=== PATIENT | female | born 2000 | race Caucasian/White ===

== ENCOUNTER 2020-05-15 15:15 | Emergency (ER) | payer MEDICAID, OTHER ==
[2020-05-15] MEDS: Metoclopramide 10 MG/2 ML SDV IVPUSH ONE ×2 (16:40→18:16)
[2020-05-15] MEDS: hydrOXYzine HCl 50 MG/ML SDV IM ONE ×2 (16:40→18:16)
[2020-05-15] MEDS ORDERED: HYDROmorphone 2 MG/ML SDV IM ONE (18:10)
[2020-05-15] MEDS ORDERED: diphenhydrAMINE 50 MG/ML SDV IM ONE (18:10)
[2020-05-15] MEDS ORDERED: Metoclopramide 10 MG/2 ML SDV IM ONE (18:10)
--- NOTE | 2020-05-15 18:15 | EDM.PDOC ---
ED HPI GENERAL MEDICAL PROBLEM - General Chief Complaint: Abdominal Pain Stated Complaint: COVID?? Time Seen by Provider: 05/15/20 17:45 Source of Information: Reports: Patient History Limitations: Reports: No Limitations - History of Present Illness INITIAL COMMENTS - FREE TEXT/NARRATIVE: c/o RLQ pain pt with h/o Crohn's of terminal ileum, dx 09/29, has had colonoscopy x 3 with GI in [place] was in hosp from Sep to Feb for recurrent pain says she always gets Benadryl and Reglan and Dilaudid for her pain refused hydroxyzine, says it interacts with her Seroquel and makes her shaking refused Reglan IM initially altho later agreed to take it says she uses Dilaudid at home and Reglan, Rx'ed by her PCP in [place], however MPMP is neg for [place] in past year says [facility] and had onset of pain 2h [employer] had had both bleeding and mucus in past, none now says this is the smae pain she has had in past and that it is a flare of her Crohn's says her labs are "always fine" says she is ANtiveo last on steroids 1m ago which she says she cannot take because it causes her to gain wt and feel shaky insisted on getting Beadryl and Dilaudid and Reglan, says her boyfriend was here to give her a ride home has had 5 loose BM/d for since dx Crohn's 09/29, including in last 24h, says she felt fine until 2h [employer] - Related Data Allergies Allergy/AdvReac Type Severity Reaction Status Date / Time cyclobenzaprine Allergy Hives Verified 05/15/20 16:26 [From Flexeril] levofloxacin [From Levaquin] Allergy Hives Verified 05/15/20 16:26 Penicillins Allergy Hives Verified 05/15/20 16:26 sulfamethoxazole Allergy Hives Verified 05/15/20 16:26 [From Bactrim] trimethoprim [From Bactrim] Allergy Hives Verified 05/15/20 16:26 Flu vaccine Allergy Hives Uncoded 05/15/20 16:26 Home Meds: Home Meds QUEtiapine Fumarate [Seroquel] 400 mg PO BEDTIME 05/15/20 [History] ED ROS GENERAL - Review of Systems Review Of Systems: See Below Constitutional: Reports: No Symptoms HEENT: Reports: No Symptoms Respiratory: Reports: No Symptoms Cardiovascular: Reports: No Symptoms Endocrine: Reports: No Symptoms GI/Abdominal: Reports: Abdominal Pain, Nausea. Denies: Vomiting : Reports: No Symptoms Musculoskeletal: Reports: No Symptoms Skin: Reports: No Symptoms Neurological: Reports: No Symptoms Psychiatric: Reports: No Symptoms Hematologic/Lymphatic: Reports: No Symptoms Immunologic: Reports: No Symptoms ED EXAM, GI/ABD - Physical Exam Exam: See Below Exam Limited By: No Limitations General Appearance: Alert, WD/WN, No Apparent Distress Throat/Mouth: Normal Inspection Head: Atraumatic, Normocephalic Neck: Normal Inspection, Supple, Non-Tender, Full Range of Motion. No: Lymphadenopathy (R), Lymphadenopathy (L) Respiratory/Chest: No Respiratory Distress, Lungs Clear, Normal Breath Sounds, No Accessory Muscle Use, Chest Non-Tender Cardiovascular: Regular Rate, Rhythm, No Edema, No Gallop, No JVD, No Murmur, No Rub GI/Abdominal Exam: Normal Bowel Sounds, Soft, Non-Tender, No Distention Back Exam: Normal Inspection, Full Range of Motion. No: CVA Tenderness (R), CVA Tenderness (L) Extremities: Normal Inspection, Normal Range of Motion, Non-Tender, No Pedal Edema Neurological: Alert, Oriented, CN II-XII Intact, Normal Cognition, Normal Reflexes, No Motor/Sensory Deficits Psychiatric: Normal Affect, Normal Mood Skin Exam: Warm, Dry, Intact, Normal Color, No Rash Lymphatic: No Adenopathy Course - Vital Signs Last Recorded V/S: Last Vital Signs Temp 36.7 C 05/15/20 15:20 Pulse 115 H 05/15/20 15:20 Resp 17 05/15/20 15:20 BP 147/100 H 05/15/20 15:20 Pulse Ox 100 05/15/20 15:20 - Orders/Labs/Meds Labs: Laboratory Tests 05/15/20 05/15/20 05/15/20 Range/Units 15:54 15:54 15:54 WBC (4.5-12.0) X10-3/uL RBC (3.23-5.20) x10(6)uL Hgb (11.5-15.5) g/dL Hct (30.0-51.3) % MCV (80-96) fL MCH (27.7-33.6) pg MCHC (32.2-35.4) g/dL RDW (11.5-15.5) % Plt Count (125-369) X10(3)uL MPV (7.4-10.4) fL Neut % (Auto) (46-82) % Lymph % (Auto) (13-37) % [place] % (Auto) (4-12) % Eos % (Auto) (1.0-5.0) % Baso % (Auto) (0-2) % Neut # (Auto) (1.6-8.3) # Lymph # (Auto) (0.6-5.0) # [place] # (Auto) (0.0-1.3) # Eos # (Auto) (0.0-0.8) # Baso # (Auto) (0.0-0.2) # Sodium (135-145) mmol/L Potassium (3.5-5.3) mmol/L Chloride (100-110) mmol/L Carbon Dioxide (21-32) mmol/L BUN (7-18) mg/dL Creatinine (0.55-1.02) mg/dL Est Cr Clr Drug Dosing Estimated GFR (MDRD) (>60) BUN/Creatinine Ratio (9-20) Glucose (80-116) mg/dL Calcium (8.6-10.2) mg/dL Total Bilirubin (0.1-1.3) mg/dL AST (5-25) IU/L ALT (12-36) U/L Alkaline Phosphatase (56-112) IU/L C-Reactive Protein (0.5-0.9) mg/dL Total Protein (6.0-8.0) g/dL Albumin (3.5-5.2) g/dL Globulin g/dL Albumin/Globulin Ratio Lipase (73-393) U/L Urine Color Yellow (YELLOW) Urine Appearance Clear (CLEAR) Urine pH 6.0 (5.0-6.5) Ur Specific [place] 1.015 (1.010-1.025) Urine Protein Negative (NEGATIVE) mg/dL Urine Glucose (UA) Normal (NORMAL) mg/dL Urine Ketones Negative (NEGATIVE) mg/dL Urine Occult Blood Negative (NEGATIVE) Urine Nitrite Negative (NEGATIVE) Urine Bilirubin Negative (NEGATIVE) Urine Urobilinogen Normal (NEGATIVE) mg/dL Ur Leukocyte Esterase Negative (NEGATIVE) Urine RBC Not seen (0-5) Urine WBC 0-5 (0-5) Ur Squamous Epith Cells Few H (NS,R,O) Urine Bacteria Few H (NS) Urine HCG, Qual Negative (NEGATIVE) Urine Opiates Screen Negative (NEGATIVE) Ur Oxycodone Screen Negative (NEGATIVE) Ur Propoxyphene Screen Negative (NEGATIVE) Ur Barbituates Screen Negative (NEGATIVE) Ur Tricyclics Screen Negative (NEGATIVE) Ur Phencyclidine Scrn Negative (NEGATIVE) Ur Amphetamine Screen Negative (NEGATIVE) Urine MDMA Screen Negative (NEGATIVE) U Benzodiazepines Scrn Negative (NEGATIVE) U Cocaine Metab Screen Negative (NEGATIVE) U Marijuana (THC) Screen Negative (NEGATIVE) 05/15/20 05/15/20 05/15/20 Range/Units 16:15 16:15 16:15 WBC 10.3 (4.5-12.0) X10-3/uL RBC 4.47 (3.23-5.20) x10(6)uL Hgb 10.5 L (11.5-15.5) g/dL Hct 31.9 (30.0-51.3) % MCV 71.4 L (80-96) fL MCH 23.6 L (27.7-33.6) pg MCHC 33.1 (32.2-35.4) g/dL RDW 17.1 H (11.5-15.5) % Plt Count 482 H (125-369) X10(3)uL MPV 8.4 (7.4-10.4) fL Neut % (Auto) 67.5 (46-82) % Lymph % (Auto) 24.5 (13-37) % [place] % (Auto) 6.9 (4-12) % Eos % (Auto) 1 (1.0-5.0) % Baso % (Auto) 0 (0-2) % Neut # (Auto) 7.0 (1.6-8.3) # Lymph # (Auto) 2.5 (0.6-5.0) # [place] # (Auto) 0.7 (0.0-1.3) # Eos # (Auto) 0.1 (0.0-0.8) # Baso # (Auto) 0.0 (0.0-0.2) # Sodium 140 (135-145) mmol/L Potassium 3.8 (3.5-5.3) mmol/L Chloride 106 (100-110) mmol/L Carbon Dioxide 23 (21-32) mmol/L BUN 12 (7-18) mg/dL Creatinine 1.1 H (0.55-1.02) mg/dL Est Cr Clr Drug Dosing TNP Estimated GFR (MDRD) > 60 (>60) BUN/Creatinine Ratio 10.9 (9-20) Glucose 92 (80-116) mg/dL Calcium 8.8 (8.6-10.2) mg/dL Total Bilirubin 0.4 (0.1-1.3) mg/dL AST 14 (5-25) IU/L ALT 21 (12-36) U/L Alkaline Phosphatase 89 (56-112) IU/L C-Reactive Protein 0.7 (0.5-0.9) mg/dL Total Protein 7.4 (6.0-8.0) g/dL Albumin 3.7 (3.5-5.2) g/dL Globulin 3.7 g/dL Albumin/Globulin Ratio 1.0 Lipase 131 (73-393) U/L Urine Color (YELLOW) Urine Appearance (CLEAR) Urine pH (5.0-6.5) Ur Specific [place] (1.010-1.025) Urine Protein (NEGATIVE) mg/dL Urine Glucose (UA) (NORMAL) mg/dL Urine Ketones (NEGATIVE) mg/dL Urine Occult Blood (NEGATIVE) Urine Nitrite (NEGATIVE) Urine Bilirubin (NEGATIVE) Urine Urobilinogen (NEGATIVE) mg/dL Ur Leukocyte Esterase (NEGATIVE) Urine RBC (0-5) Urine WBC (0-5) Ur Squamous Epith Cells (NS,R,O) Urine Bacteria (NS) Urine HCG, Qual (NEGATIVE) Urine Opiates Screen (NEGATIVE) Ur Oxycodone Screen (NEGATIVE) Ur Propoxyphene Screen (NEGATIVE) Ur Barbituates Screen (NEGATIVE) Ur Tricyclics Screen (NEGATIVE) Ur Phencyclidine Scrn (NEGATIVE) Ur Amphetamine Screen (NEGATIVE) Urine MDMA Screen (NEGATIVE) U Benzodiazepines Scrn (NEGATIVE) U Cocaine Metab Screen (NEGATIVE) U Marijuana (THC) Screen (NEGATIVE) Meds: Medications Discontinued Medications Generic Name Dose Route Start Last Admin Trade Name Riky PRN Reason Stop Dose Admin Diphenhydramine HCl 50 mg 05/15/20 18:10 05/15/20 18:22 Benadryl IM 05/15/20 18:11 50 mg ONETIME ONE Administration Hydromorphone HCl 1 mg 05/15/20 18:10 05/15/20 18:21 Dilaudid IM 05/15/20 18:11 1 mg ONETIME ONE Administration Hydroxyzine HCl 50 mg 05/15/20 15:53 05/15/20 18:16 Vistaril IM 05/15/20 15:54 Not Given ONETIME ONE Metoclopramide HCl 10 mg 05/15/20 16:31 05/15/20 18:16 Reglan IVPUSH 05/15/20 16:32 Not Given ONETIME ONE Metoclopramide HCl 10 mg 05/15/20 18:10 05/15/20 18:20 Reglan IM 05/15/20 18:11 10 mg ONETIME ONE Administration - Re-Assessments/Exams Free Text/Narrative Re-Assessment/Exam: 05/15/20 20:08 pt has a flare of her Crohn's by hx and PE altho old records not available pt has h/o of bipolar, unclear if all of her hx is accurate, pt does not have oral Dilaudid at home despite standing that she does pt did ask for a "small, one-day" supply of controlled meds, told that she would need to get these from her PCP malingering and drug seeking behavior are part of differential in the absence of confirmatory data Departure - Departure Time of Disposition: 18:11 Disposition: Home, Self-Care 01 Condition: Good Clinical Impression: Crohns disease of small intestine, Exacerbation of Crohn's disease, Right lower quadrant pain - Discharge Information *PRESCRIPTION DRUG MONITORING PROGRAM REVIEWED*: Yes *COPY OF PRESCRIPTION DRUG MONITORING REPORT IN PATIENT LUCI: No Instructions: Crohn's Disease Referrals: PCP,None [Primary Care Provider] - Forms: ED Department Discharge Additional Instructions: Continue your regular meds. Contact your primary care physician regarding additional meds at home. See your GI doctor later this for further recommendations. Do not drive for 8 hours. Use moist heat in tub or shower for 10 minutes 4 times a day for the next 2 days. Sepsis Event Note (ED) - Evaluation Sepsis Screening Result: Possible Sepsis Risk - Focused Exam Vital Signs: Vital Signs Temp Pulse Resp BP Pulse Ox 05/15/20 15:20 36.7 C 115 H 17 147/100 H 100
== END 2020-05-15 18:37 | disposition home or self-care (01) ==
LOC: FB.ED 15:15
DX: K50.00 Crohn's disease of small intestine without complications (principal); Z88.8 Allergy status to other drugs, medicaments and biological substances; Z88.1 Allergy status to other antibiotic agents; Z88.0 Allergy status to penicillin; Z88.2 Allergy status to sulfonamides; Z88.7 Allergy status to serum and vaccine; Z79.899 Other long term (current) drug therapy
CPT/HCPCS: 36415; 80053; 80305; 81001; 81025; 83690; 85025; 86140; 96372; 99284; J1170; J1200; J2765; J3410

== ENCOUNTER 2020-05-19 12:47 | Emergency (ER) | payer MEDICAID ==
[2020-05-19] MEDS ORDERED: Metoclopramide 10 MG Tab PO ONE (13:00)
--- NOTE | 2020-05-19 13:03 | EDM.PDOC ---
ED HPI GENERAL MEDICAL PROBLEM - General Chief Complaint: Gastrointestinal Problem Time Seen by Provider: 05/19/20 12:50 Source of Information: Reports: Patient History Limitations: Reports: No Limitations - History of Present Illness INITIAL COMMENTS - FREE TEXT/NARRATIVE: pt with known Crohn's disease , states she has RLQ abd pain , nausea and vomiting, intermittent bloody stools. Was seen 4 days ago with same complaints and given dose of dilaudid and antiemetics States she is supposed to be doctoring in [place] but declining to go there as she has had 3 infections under their care she is looking for a new place to doctor, does not have PCP Pt encourage to get stable PCP to monitor illness pt requested for nausea medication I did discuss referral to see a PCP and she states she will make an appt to see one Onset: Gradual Duration: Intermittent Location: Reports: Abdomen Quality: Reports: Ache, Dull Severity: Mild Improves with: Reports: Medication Worsens with: Reports: Eating Associated Symptoms: Reports: Loss of Appetite, Nausea/Vomiting, Weakness RLQ Pain Score (Numeric/FACES): 7 - Related Data Allergies Allergy/AdvReac Type Severity Reaction Status Date / Time cyclobenzaprine Allergy Hives Verified 05/15/20 16:26 [From Flexeril] levofloxacin [From Levaquin] Allergy Hives Verified 05/15/20 16:26 Penicillins Allergy Hives Verified 05/15/20 16:26 sulfamethoxazole Allergy Hives Verified 05/15/20 16:26 [From Bactrim] trimethoprim [From Bactrim] Allergy Hives Verified 05/15/20 16:26 Flu vaccine Allergy Hives Uncoded 05/15/20 16:26 Home Meds: Home Meds QUEtiapine Fumarate [Seroquel] 400 mg PO BEDTIME 05/15/20 [History] Metoclopramide HCl [Reglan] 10 mg PO Q6HR #30 tablet 05/19/20 [Rx] Ondansetron [Zofran ODT] 4 mg PO Q6H PRN #20 tab.dis 05/19/20 [Rx] Past Medical History Gastrointestinal History: Reports: Other (See Below) Other Gastrointestinal History: Crohn's disease. Psychiatric History: Reports: Anxiety, Bipolar, Depression Other Psychiatric History: on Seroquel - Infectious Disease History Infectious Disease History: Reports: Other (See Below) Other Infectious Disease History: states that she had sepsis from the PICC line that was inserted to her and she ended up having a port. Social & Family History - Family History Family Medical History: Noncontributory - Caffeine Use Caffeine Use: Reports: Coffee, Soda ED ROS GENERAL - Review of Systems Review Of Systems: See Below Constitutional: Reports: No Symptoms HEENT: Reports: No Symptoms Respiratory: Reports: No Symptoms ED EXAM, GI/ABD - Physical Exam Exam: See Below Exam Limited By: No Limitations General Appearance: Alert, WD/WN, No Apparent Distress Eyes: Bilateral: EOMI Ears: Normal Canal Nose: Normal Inspection Throat/Mouth: Normal Oropharynx Head: Atraumatic Neck: Supple, Non-Tender Cardiovascular: Regular Rate, Rhythm GI/Abdominal Exam: Soft, Non-Tender Back Exam: Full Range of Motion Extremities: Normal Range of Motion, Non-Tender Neurological: Alert, Oriented, CN II-XII Intact, Normal Cognition Psychiatric: Normal Affect Skin Exam: Warm, Intact Course - Vital Signs Last Recorded V/S: Last Vital Signs Temp 36.8 C 05/19/20 13:33 Pulse 98 05/19/20 13:33 Resp 18 05/19/20 13:33 BP 146/88 H 05/19/20 13:33 Pulse Ox 100 05/19/20 13:33 - Orders/Labs/Meds Meds: Medications Discontinued Medications Generic Name Dose Route Start Last Admin Trade Name Riky PRN Reason Stop Dose Admin Metoclopramide HCl 10 mg 05/19/20 13:00 Reglan PO 05/19/20 13:01 ONETIME ONE Metoclopramide HCl 10 mg 05/19/20 13:11 Reglan IM 05/19/20 13:12 ONETIME ONE Ondansetron HCl 8 mg 05/19/20 13:01 Zofran Odt PO 05/19/20 13:02 ONETIME ONE Departure - Departure Time of Disposition: 01:45 Disposition: Home, Self-Care 01 Condition: Good Clinical Impression: Exacerbation of Crohn's disease, Right lower quadrant pain, Nausea & vomiting, Crohns disease of small intestine - Discharge Information *PRESCRIPTION DRUG MONITORING PROGRAM REVIEWED*: Not Applicable *COPY OF PRESCRIPTION DRUG MONITORING REPORT IN PATIENT LUCI: Not Applicable Prescriptions: Metoclopramide HCl [Reglan] 10 mg PO Q6HR #30 tablet Ondansetron [Zofran ODT] 4 mg PO Q6H PRN #20 tab.dis PRN Reason: Nausea Instructions: Nausea and Vomiting, Adult, [id number] Referrals: PCP,None [Primary Care Provider] - Forms: ED Department Discharge Additional Instructions: 1) make appointment to see your PCP for further management of Crohn's disease 2) 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
[2020-05-19] MEDS: Metoclopramide 10 MG/2 ML SDV IM ONE ×2 (13:19→15:19)
[2020-05-19] MEDS: Ondansetron 8 MG Tab.DIS PO ONE ×2 (13:19→15:19)
== END 2020-05-19 13:35 | disposition home or self-care (01) ==
LOC: FB.ED 12:47
DX: K50.00 Crohn's disease of small intestine without complications (principal); F41.9 Anxiety disorder, unspecified; F31.9 Bipolar disorder, unspecified; Z88.0 Allergy status to penicillin; Z88.2 Allergy status to sulfonamides; Z88.7 Allergy status to serum and vaccine; Z88.1 Allergy status to other antibiotic agents; Z79.899 Other long term (current) drug therapy
CPT/HCPCS: 99283; A9270-GY; J2765